=== PATIENT | male | born 1995 | race Caucasian/White ===

== ENCOUNTER → 2020-01-06 | Emergency (ER) | payer OTHER ==
[~2020-01-06] VITALS: Ht 185.4 cm; Wt 95.3 kg
[2020-01-06 16:14] VITALS: BP 112/76
--- NOTE | 2020-01-06 16:16 | NUR ---
ED Nurse Note: Patient walked in to ER stated " Iwas tested + for COVI19 9 days ago, may I have hydration." Patient AAO x4, VSS at this time. Patient has non-labored breathing, O2 sat 96% on RA.
--- NOTE | 2020-01-06 16:50 | Emergency Room Report ---
History of Present Illness General Chief Complaint: Flu Like Symptoms Source: Patient Present Illness HPI 24-year-old male with confirmed positive COVID status per Dr. Lezama, here complaining of shortness of breath and wanting his vital signs to be checked. Dr. Murillo talked was over the phone and wanted patient to be hydrated however agree to oral hydration. Patient appears to be stable with stable signs. Reports that he went to [facility] this past week and alcohol. Patient also vapes. Patient is scared that he may get ventilator dependent. Patient was advised to stop vaping and smoking tobacco. Denies any chest pain at this time. Denies any fever and chills. Patient has been symptomatic for 9 days already. Patient has not been self quarantining. 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 COVID-19 Screening: Positive COVID-19 COVID-19 Testing Source: TEACHING PASTOR Patient History Past Medical History: see triage record Past Surgical History: none Pertinent Family History: none Social History: Reports: smoking Immunizations: UTD Reviewed Nursing Documentation: PMH: Agreed; PSxH: Agreed Nursing Documentation-PMH Past Medical History: No Stated History Review of Systems All Other Systems: negative except mentioned in HPI Physical Exam Vital Signs Date Time Temp Pulse Resp B/P (MAP) Pulse Ox O2 Delivery O2 Flow Rate FiO2 01/06/20 16:09 97.5 92 19 112/76 (88) 96 Room Air Sp02 EP Interpretation: reviewed, normal General Appearance: no apparent distress, alert, GCS 15, non-toxic Head: normocephalic, atraumatic Eyes: bilateral eye normal inspection, bilateral eye PERRL ENT: hearing grossly normal, normal pharynx, no angioedema, normal voice Neck: full range of motion, supple/symm/no masses Respiratory: chest non-tender, lungs clear, normal breath sounds, no rhonchi, no retraction, speaking full sentences Cardiovascular #1: regular rate, rhythm, no edema Gastrointestinal: normal bowel sounds, non tender, soft, non-distended, no guarding, no rebound Genitourinary: no CVA tenderness Musculoskeletal: back normal Neurologic: alert, motor strength/tone normal, oriented x3, sensory intact, responsive, speech normal Psychiatric: judgement/insight normal, memory normal, mood/affect normal, no suicidal/homicidal ideation Skin: no rash Lymphatic: no adenopathy Medical Decision Making PA Attestation All my diagnosis and treatment plans were reviewed ad discussed with my supervising physician Dr. Abarca Diagnostic Impression: Primary Impression: COVID-19 Additional Impression: Dehydration ER Course 24-year-old male with confirmed positive COVID status per Dr. Lezama, here complaining of shortness of breath and wanting his vital signs to be checked. Dr. Murillo talked was over the phone and wanted patient to be hydrated however agree to oral hydration. Patient appears to be stable with stable signs. Reports that he went to [facility] this past week and alcohol. Patient also vapes. Patient is scared that he may get ventilator dependent. Patient was advised to stop vaping and smoking tobacco. Denies any chest pain at this time. Denies any fever and chills. Patient has been symptomatic for 9 days already. Patient has not been self quarantining. Ddx considered but are not limited to: Coronavirus, strep pharyngitis, URI, tonsillitis, peritonsillar abscess, influneza Vital signs: are WNL, pt. is afebrile H&PE are most consistent with: Positive COVID-19, dehydration ORDERS: Chest x-ray ED INTERVENTIONS: Oral hydration DISCHARGE: At this time pt. is stable for d/c to home. Will provide printed patient care instructions, and any necessary prescriptions. Care plan and follow up instructions have been discussed with the patient prior to discharge. Patient to self quarantine, increase oral hydration, avoid drinking alcohol, avoid vaping in order not to be ventilator dependent, if respiratory distress return to the emergency room. Chest X-Ray Diagnostic Results Chest X-Ray Diagnostic Results : Chest X-Ray Ordered: Yes # of Views/Limited/Complete: 1 View Indication: Other EP Interpretation: Yes PA Xray: Interpretation reviewed, by supervising MD, and agrees with findings. Interpretation: no consolidation, no effusion, no pneumothorax Impression: No acute disease Electronically Signed by: Sebas Laughlin PA-C Last Vital Signs Date Time Temp Pulse Resp B/P (MAP) Pulse Ox O2 Delivery O2 Flow Rate FiO2 01/06/20 16:14 92 19 Room Air 01/06/20 16:14 97.5 112/76 96 Disposition: HOME, SELF-CARE Condition: Stable Patient Instructions: Dehydration, Adult, [id number] Additional Instructions: Increase oral hydration especially electrolyte water, avoid eating spicy food and carbonated fluid, avoid drinking alcohol, avoid vaping and smoking tobacco smoke, if worsening symptoms, shortness of breath, respiratory distress return to the emergency room Sebas White Jan 06, 2020 16:50
--- NOTE | 2020-01-06 19:20 | Diagnostic Imaging Report ---
Indication: Shortness of breath Technique: One view of the chest Comparison: none Findings: Lungs and pleural spaces are clear. Heart size is normal. Impression: No acute process
== END | disposition home or self-care (01) ==
LOC: EMR 16:45
DX: U07.1 COVID-19 (principal); E86.0 Dehydration; F17.200 Nicotine dependence, unspecified, uncomplicated
CPT/HCPCS: 71045; 99283